=== PATIENT | male | born 1995 | race Caucasian/White ===

== ENCOUNTER 2024-11-03 19:09 | Emergency (ER) | payer OTHER ==
[~2024-11-03] VITALS: Ht 182.9 cm; Wt 83.9 kg
[~2024-11-03 19:09] MED LIST: ALBU90OI INH; ATOM18 PO; AZIT250 PO; BUPR150T2 PO; CETI10 PO; CITA20 PO; CLIN150 PO; CODGUAEL PO; CRUTCH4 USE; Cleocin HCl300 MG PO; Clindamycin HC300 MG PO; ERYT500 PO; FAMO20 PO; FLUO20 PO; HYDACE5 PO; HYDR-86 PO; IBUP600 PO; MAGIC MOUTHWASH; METPHE20 PO; NAPR500 PO; NORT10 PO; Naprosyn500 MG PO; OLAN10 PO; OLAN5 PO; ONDA8ODT MM; RXCLIN PO; RXONDA4ODT MM; TRIA80TC TOP; Ultram50 MG PO; Zithromax250 MG PO
[2024-11-03] MEDS ORDERED: HYDROmorphone HCl/Pf 1MG SYR IV ONE ×3 (19:25→21:55)
[2024-11-03 19:34] LABS: BASOPHILS ABSOLUTE AUTO 0.04 K/mm3 (0.00-0.23); BASOPHILS PERCENT AUTO 0 % (0-2); EOSINOPHILS ABSOLUTE AUTO 0.04 K/mm3 (0.00-0.68); EOSINOPHILS PERCENT AUTO 0 % (0-6); Hematocrit 40.1 % (37.0-53.0); Hemoglobin 13.7 g/dL (13.5-17.5); IMMATURE GRAN ABSOLUTE AUTO 0.16 K/mm3 (0.00-0.10); IMMATURE GRAN PERCENT AUTO 1 % (0-1); LYMPHOCYTES PERCENT AUTO 7 % (21-46); MONOCYTES ABSOLUTE AUTO 0.93 K/mm3 (0.16-1.47); MONOCYTES PERCENT AUTO 6 % (4-13); Mean Corpuscular HGB Conc 34.2 g/dL (31.5-36.5); Mean Corpuscular Volume 94 fL (80-100); Mean Platelet Volume 9.4 fL (9.1-12.4); NEUTROPHILS ABSOLUTE AUTO 13.19 K/mm3 (1.96-9.15); NEUTROPHILS PERCENT AUTO 85 % (41-73); Platelet Count 255 K/mm3 (150-400); RDW Coefficient Variation 12.6 % (11.7-14.2); RDW Standard Deviation 43.5 fL (35.1-46.3); Red Blood Cell Count 4.28 M/mm3 (4.30-5.90); White Blood Cell Count 15.46 K/mm3 (4.00-11.30)
[2024-11-03 19:41] LABS: International Normalized Ratio 1.06; Prothrombin Time Results 11.6 Sec (9.7-11.5)
[2024-11-03 19:53] LABS: Albumin, Blood 3.9 g/dL (3.4-5.0); Albumin/Globulin Ratio 1.4 (0.8-1.8); Bilirubin, Total 0.5 mg/dL (0.1-1.0); Bun/Creatinine Ratio 18.3 (12.0-20.0); Calcium, Blood 8.9 mg/dL (8.5-10.1); Creatinine, Blood 0.87 mg/dL (0.60-1.20); Globulin, Blood 2.8 g/dL (2.2-4.0); Potassium, Blood 3.4 mmol/L (3.5-5.5); Total Protein, Blood 6.7 g/dL (6.4-8.2)
[2024-11-03 22:15] VITALS: BP 131/71
== END 2024-11-03 22:34 | disposition home or self-care (01) ==
LOC: ER 19:09
PROVIDERS: Emergency Medicine
DX: S32.029A Unspecified fracture of second lumbar vertebra, initial encounter for closed fracture (principal); S51.011A Laceration without foreign body of right elbow, initial encounter; S61.411A Laceration without foreign body of right hand, initial encounter; S51.811A Laceration without foreign body of right forearm, initial encounter; V89.2XXA Person injured in unspecified motor-vehicle accident, traffic, initial encounter; Z88.0 Allergy status to penicillin
CPT/HCPCS: 70450; 71045; 71260; 72125; 72170; 74177; 80053; 80320; 83690; 85025; 85610; J1171; Q9967